=== PATIENT | female | born 1980 | race Hispanic/Latino ===

== ENCOUNTER 2021-12-06 16:58 | Emergency (ER) | payer OTHER ==
--- NOTE | 2021-12-06 17:47 | Emergency Department Report ---
ED Abdominal Pain HPI - General Chief Complaint: Abdominal Pain Stated Complaint: KIDNEY STONE SYM PUI?: No Source: patient Mode of arrival: Ambulatory Limitations: No Limitations - History of Present Illness Initial Comments: 41 YO COMES TO ER CO LEFT FLANK PAIN. CO FOR KIDNEY STONE. LMP NOW MD Complaint: abdominal pain Severity scale (0 -10): 8 - Related Data Allergies Allergy/AdvReac Type Severity Reaction Status Date / Time Penicillins Allergy Rash Verified 12/06/21 17:46 ED Review of Systems ROS: Stated complaint: KIDNEY STONE SYM Other details as noted in HPI Comment: All other systems reviewed and negative ED Past Medical Hx - Past Medical History Previous Medical History?: Yes Hx Diabetes: Yes (insulin pump) - Surgical History Past Surgical History?: Yes Additional Surgical History: and tubal ligation - Family History Family history: no significant - Social History Smoking Status: Never Smoker Substance Use Type: None ED Physical Exam - General Limitations: No Limitations General appearance: alert, in no apparent distress - Head Head exam: Present: atraumatic, normocephalic - Eye Eye exam: Present: normal appearance - ENT ENT exam: Present: mucous membranes moist - Neck Neck exam: Present: normal inspection - Respiratory Respiratory exam: Present: normal lung sounds bilaterally. Absent: respiratory distress - Cardiovascular Cardiovascular Exam: Present: regular rate, normal rhythm. Absent: systolic murmur, diastolic murmur, rubs, gallop - GI/Abdominal GI/Abdominal exam: Present: soft, normal bowel sounds - Extremities Exam Extremities exam: Present: normal inspection - Back Exam Back exam: Present: normal inspection - Neurological Exam Neurological exam: Present: alert, oriented X3 - Psychiatric Psychiatric exam: Present: normal affect, normal mood - Skin Skin exam: Present: warm, dry, intact, normal color. Absent: rash ED Course Vital Signs 12/06/21 17:44 Temperature 98.6 F Pulse Rate 66 Respiratory 14 Rate Blood Pressure 168/90 [Right] O2 Sat by Pulse 98 Oximetry Critical care attestation.: If time is entered above; I have spent that time in minutes in the direct care of this critically ill patient, excluding procedure time. ED Disposition Clinical Impression: Abdominal pain Disposition: 30 STILL A PATIENT Is pt being admited?: No Does the pt Need Aspirin: No Condition: Stable Instructions: Abdominal Pain (ED) Time of Disposition: 17:53
[2021-12-06 18:27] LABS: Alanine Aminotransferase 18 units/L (7-56); Blood Urea Nitrogen 16 mg/dL (7-17); Calcium 9.6 mg/dL (8.4-10.2); Hemolysis Index 6
[2021-12-06 18:34] LABS: BUN/Creatinine Ratio 23
[2021-12-06 18:49] LABS: Hemoglobin 13.9 gm/dl (10.1-14.3); Mean Corpuscular HGB Conc 32 % (30-34); Mean Corpuscular Volume 78 fl (79-97); Platelet Count 257 K/mm3 (140-440); Red Blood Count 5.49 M/mm3 (3.65-5.03); Red Cell Distribution Width 15.6 % (13.2-15.2)
[2021-12-06] MEDS ORDERED: MORPHINE 4 MG/1 ML INJ IV ONE (21:07)
[2021-12-06] MEDS ORDERED: ONDANSETRON 4 MG/2 ML INJ IV ONE (21:07)
[2021-12-06] MEDS ORDERED: SODIUM CHLORIDE 0.9% 1000 ML 1,000 ML IV ONE (21:10)
[2021-12-06 21:46] LABS: RBC,Urine < 1.0 /HPF (0.0-6.0)
[2021-12-06 21:52] LABS: Bilirubin,Urine Negative (Negative); Blood,Urine Negative (Negative); Color,Urine Yellow (Yellow); HCG Qualitative,Urine Negative (Negative); Protein,Urine <15 mg/dL mg/dL (Negative); Urobilinogen,Urine < 2.0 mg/dL (<2.0); WBC,Urine < 1.0 /HPF (0.0-6.0)
--- NOTE | 2021-12-06 23:24 | Cat Scan Report ---
CT ABDOMEN AND PELVIS WITH CONTRAST INDICATION / CLINICAL INFORMATION: left flank pain, pain on urination . TECHNIQUE: Axial CT images were obtained through the abdomen and pelvis after 100 cc Omnipaque [address] scans at this location are performed using CT dose reduction for ALARA by means of automated exposure control. COMPARISON: None available. FINDINGS: LOWER CHEST: No significant abnormality. LIVER: No significant abnormality. GALLBLADDER: No significant abnormality. BILE DUCTS: No significant abnormality. PANCREAS: No significant abnormality. SPLEEN: No significant abnormality. ADRENALS: No significant abnormality. RIGHT KIDNEY/URETER: No significant abnormality. LEFT KIDNEY/URETER: No significant abnormality. STOMACH/SMALL BOWEL: No significant abnormality. COLON: No significant abnormality. APPENDIX: No significant abnormality. PERITONEUM: No free fluid. No free air. No fluid collection. LYMPH NODES: No significant adenopathy. VASCULATURE: No significant abnormality. URINARY BLADDER: Well-distended without acute abnormalities. REPRODUCTIVE ORGANS: No significant abnormality. ADDITIONAL FINDINGS: None. BONES: No significant abnormality IMPRESSION: 1. No significant abnormality to explain the patient's complaints. Signer Name: Ji Jones MD Signed: 12/06/2021 11:19 PM Workstation Name: [id number]
--- NOTE | 2021-12-06 23:35 | Emergency Department Report ---
ED Abdominal Pain HPI - General Chief Complaint: Abdominal Pain Stated Complaint: KIDNEY STONE SYM Time Seen by Provider: 12/06/21 17:47 Source: patient Mode of arrival: Ambulatory Limitations: No Limitations - History of Present Illness Initial Comments: Patient is a 41-year-old female with past medical history of insulin-dependent diabetes who presents to the ED with complaint of acute onset persistent left flank pain, that radiates to the lower back and suprapubic area with nausea for the last 3 days. Patient states that the symptoms have worsened in the last 24 hours. Patient denies fever, chills, vomiting, diarrhea, dysuria, vaginal bleeding, vaginal discharge, traumatic injury or heavy lifting, chest pain or shortness of breath, cough or sore throat and headache. MD Complaint: abdominal pain (lower abdominal pain), flank pain (left flank ), other (urinary urgency and frequency) -: Gradual, days(s) (3) Location: LLQ, suprapubic, L flank Radiation: LLQ, suprapubic, L flank Migration to: no migration Severity: severe Severity scale (0 -10): 8 Quality: cramping, sharp Consistency: constant Improves With: nothing Worsens With: nothing Associated Symptoms: denies other symptoms, nausea, anorexia. denies: vomiting, diarrhea, chills, constipation, dysuria, hematemesis, hematochezia, melena, syncope, other - Related Data LMP Date: 11/27/21 Previous Rx's Medication Instructions Recorded Last Taken Type Ibuprofen [Motrin] 800 mg PO Q8HR PRN #30 tablet 12/06/21 Unknown Rx Ondansetron [Zofran Odt] 4 mg PO Q8HR PRN #15 tab.rapdis 12/06/21 Unknown Rx methOCARBAMOL [Robaxin TAB] 750 mg PO Q8H PRN #24 tab 12/06/21 Unknown Rx Allergies Allergy/AdvReac Type Severity Reaction Status Date / Time Penicillins Allergy Rash Verified 12/06/21 17:46 ED Review of Systems ROS: Stated complaint: KIDNEY STONE SYM Other details as noted in HPI Constitutional: denies: chills, fever Eyes: denies: eye pain, eye discharge, vision change ENT: denies: ear pain, throat pain Respiratory: denies: cough, shortness of breath, wheezing Cardiovascular: denies: chest pain, palpitations Endocrine: no symptoms reported Gastrointestinal: abdominal pain (Left lower quadrant and suprapubic pain), nausea. denies: diarrhea Genitourinary: denies: urgency, dysuria, discharge Musculoskeletal: denies: back pain, joint swelling, arthralgia Skin: denies: rash, lesions Neurological: denies: headache, weakness, paresthesias Psychiatric: denies: anxiety, depression Hematological/Lymphatic: denies: easy bleeding, easy bruising ED Past Medical Hx - Past Medical History Previous Medical History?: Yes Hx Diabetes: Yes (insulin pump) - Surgical History Past Surgical History?: Yes Additional Surgical History: and tubal ligation - Social History Smoking Status: Never Smoker Substance Use Type: None - Medications Home Medications: Home Medications Medication Instructions Recorded Confirmed Last Taken Type Ibuprofen [Motrin] 800 mg PO Q8HR PRN #30 tablet 12/06/21 Unknown Rx Ondansetron [Zofran Odt] 4 mg PO Q8HR PRN #15 tab.rapdis 12/06/21 Unknown Rx methOCARBAMOL [Robaxin TAB] 750 mg PO Q8H PRN #24 tab 12/06/21 Unknown Rx ED Physical Exam - General Limitations: No Limitations General appearance: alert, in no apparent distress - Head Head exam: Present: atraumatic, normocephalic, normal inspection - Eye Eye exam: Present: normal appearance, PERRL, EOMI Pupils: Present: normal accommodation - ENT ENT exam: Present: normal exam, normal orophraynx, mucous membranes moist, TM's normal bilaterally, normal external ear exam - Neck Neck exam: Present: normal inspection, full ROM. Absent: tenderness - Respiratory Respiratory exam: Present: normal lung sounds bilaterally. Absent: respiratory distress, wheezes, rales, rhonchi, stridor, chest wall tenderness, accessory mu scle use, decreased breath sounds, prolonged expiratory - Cardiovascular Cardiovascular Exam: Present: regular rate, normal rhythm, normal heart sounds. Absent: bradycardia, tachycardia, systolic murmur, diastolic murmur, rubs, gallop - GI/Abdominal GI/Abdominal exam: Present: soft, tenderness (Palpable suprapubic and left lower quadrant tenderness), normal bowel sounds. Absent: guarding, rebound, rigid, hyperactive bowel sounds, hypoactive bowel sounds, organomegaly, bruit - Extremities Exam Extremities exam: Present: normal inspection, full ROM, normal capillary refill. Absent: tenderness - Back Exam Back exam: Present: normal inspection, full ROM, tenderness (Palpable lumbosacral paraspinal musculoskeletal tenderness), muscle spasm, paraspinal tenderness. Absent: CVA tenderness (R), CVA tenderness (L) - Neurological Exam Neurological exam: Present: alert, oriented X3, CN II-XII intact, normal gait, reflexes normal - Psychiatric Psychiatric exam: Present: normal affect, normal mood - Skin Skin exam: Present: warm, dry, intact, normal color. Absent: rash ED Course Vital Signs 12/06/21 12/06/21 12/06/21 17:44 21:28 21:29 Temperature 98.6 F 98.1 F Pulse Rate 66 67 Respiratory 14 18 16 Rate Blood Pressure 168/90 133/67 [Right] O2 Sat by Pulse 98 98 Oximetry ED Medical Decision Making - Lab Data Result diagrams: 12/06/21 17:52 12/06/21 17:52 - Radiology Data Radiology results: report reviewed, [place] [address] Cat Scan Report Signed Patient: LILIAN BERNSTEIN MR#: [id number] : 1980 Acct:[id number] Age/Sex: 41 / F ADM Date: 12/06/21 Loc: ED Attending Dr: Ordering Physician: CHACE GUERRERO Date of Service: 12/06/21 Procedure(s): CT abdomen pelvis w con Accession Number(s): [id number] cc: CHACE GUERRERO CT ABDOMEN AND PELVIS WITH CONTRAST INDICATION / CLINICAL INFORMATION: left flank pain, pain on urination . TECHNIQUE: Axial CT images were obtained through the abdomen and pelvis after 100 cc Omnipaque [address] scans at this location are performed using CT dose reduction for ALARA by means of automated exposure control. COMPARISON: None available. FINDINGS: LOWER CHEST: No significant abnormality. LIVER: No significant abnormality. GALLBLADDER: No significant abnormality. BILE DUCTS: No significant abnormality. PANCREAS: No significant abnormality. SPLEEN: No significant abnormality. ADRENALS: No significant abnormality. RIGHT KIDNEY/URETER: No significant abnormality. LEFT KIDNEY/URETER: No significant abnormality. STOMACH/SMALL BOWEL: No significant abnormality. COLON: No significant abnormality. APPENDIX: No significant abnormality. PERITONEUM: No free fluid. No free air. No fluid collection. LYMPH NODES: No significant adenopathy. VASCULATURE: No significant abnormality. URINARY BLADDER: Well-distended without acute abnormalities. REPRODUCTIVE ORGANS: No significant abnormality. ADDITIONAL FINDINGS: None. BONES: No significant abnormality IMPRESSION: 1. No significant abnormality to explain the patient's complaints. Signer Name: Ji Jones MD Signed: 12/06/2021 11:19 PM Workstation Name: [id number] Transcribed By: [place] Dictated By: Ji Jones MD Electronically Authenticated By: Ji Jones MD Signed Date/Time: 12/06/212318 DD/ 16 TD/TT: Print Cancel - Medical Decision Making This a 41-year-old female with past medical history of insulin-dependent diabetes who presents to the ED with complaint of acute onset persistent left flank pain, that radiates to the lower back and suprapubic area with nausea for the last 3 days. Patient states that the symptoms have worsened in the last 24 hours. In the ED, patient is alert and oriented x3 and is not in any distress. Patient is hemodynamically stable. Patient was treated for pain in the ED and was given antiemetics. All lab test results were reviewed and are all nonactionable. Abdomen pelvis CT scan with IV contrast showed no acute abnormalities. On reevaluation, patient's pain is well controlled medication. Patient's symptoms are likely musculoskeletal causing low back pain that radiates to the lower abdomen. Patient was discharged home on medications and advised to follow-up with her primary care physician in 5 to 7 days for reevaluation or return to the ED immediately if symptoms get worse - Differential Diagnosis Kidney stone; UTI; ovarian cyst; uterine fibroid; muscle spasm; muscle stra Critical care attestation.: If time is entered above; I have spent that time in minutes in the direct care of this critically ill patient, excluding procedure time. ED Disposition Clinical Impression: Abdominal pain in female patient, Spasm of muscle of lower back Disposition: HOME / SELF CARE / HOMELESS Is pt being admited?: No Does the pt Need Aspirin: No Condition: Stable Instructions: Abdominal Pain (ED), Muscle Cramps and Spasms, [id number], Flank Pain, Adult, [id number], Abdominal Pain, Adult, [id number] Additional Instructions: All lab test results were reviewed and are all nonactionable. Abdomen pelvis CT scan with IV contrast showed no acute abnormalities. Your symptoms are likely musculoskeletal. Therefore take medication with food, drink plenty of fluids and follow-up with your primary care physician in 7 to 10 days for reevaluation. Return to the ED immediately if symptoms get worse Prescriptions: Ibuprofen [Motrin] 800 mg PO Q8HR PRN #30 tablet PRN Reason: Pain , Severe (7-10) methOCARBAMOL [Robaxin TAB] 750 mg PO Q8H PRN #24 tab PRN Reason: Muscle Spasm Ondansetron [Zofran Odt] 4 mg PO Q8HR PRN #15 tab.rapdis PRN Reason: Nausea Referrals: NATALIYA LASSITER MD [Primary Care Provider] - 7-10 days Forms: Work/School Release Form(ED) Time of Disposition: 23:37 Print Language: CHINESE
[2021-12-07 00:09] VITALS: BP 137/71
== END 2021-12-07 00:09 | disposition home or self-care (01) ==
LOC: ED 16:58
DX: R10.2 Pelvic and perineal pain (principal); R30.0 Dysuria; R11.0 Nausea
CPT/HCPCS: 36415; 74177; 80053; 81001; 81025; 85027; 96361; 96374; 96375; 99284; J2270; J2405; J7030; Q9967